=== PATIENT | male | born 1965 | race African-American/Black ===

== ENCOUNTER 2023-11-19 20:53 | Inpatient (IN) | payer MEDICARE, MEDICAID ==
[~2023-11-19] VITALS: Ht 182.9 cm; Wt 83.1 kg
[~2023-11-19 20:53] MED LIST: NIFE90TA60 PO
[2023-11-19] MEDS: ACETAMINOPHEN 325MG TABLET PO ONE (22:15)
[2023-11-19 23:09] LABS: DIFFERENTIAL COMMENT 1; HEMATOCRIT. 30.3 % (42.0-52.0); HEMOGLOBIN. 9.9 g/dL (14.0-18.0); MEAN CORPUSCULAR HEMOGLOBIN 28.6 pg (28.0-32.0); MEAN CORPUSCULAR HGB CONC 32.8 g/dL (31.0-37.0); MEAN CORPUSCULAR VOLUME 86.9 fL (80.0-94.0); MEAN PLATELET VOLUME 11.1 fl (7.4-10.4); PLATELET 129 x1000/uL (130-400); RED BLOOD CELL COUNT 3.48 mill/uL (4.7-6.1); RED CELL DISTRIBUTION WIDTH 15.6 % (11.6-14.6); WHITE BLOOD COUNT 6.1 x1000/uL (4.5-11.0)
[2023-11-19 23:13] LABS: CHLORIDE 96 mEq/L (98-107); SODIUM 126 mEq/L (136-145)
[2023-11-19 23:14] LABS: CALCIUM 9.7 mg/dL (8.7-10.4); CARBON DIOXIDE 15 mEq/L (21-32)
[2023-11-19 23:19] LABS: GLUCOSE 138 mg/dL (70-105); INR 1.1; PROTHROMBIN TIME 11.8 sec (9.6-11.0)
[2023-11-19 23:20] LABS: PLATELET ESTIMATE DECREASED
[2023-11-19 23:21] LABS: ALANINE AMINOTRANSFERASE < 7 IU/L (10-49); ALBUMIN 4.3 g/dL (3.2-4.8); ASPARTATE AMINOTRANSFERASE 10 IU/L (<34); BILIRUBIN DIRECT 0.2 mg/dL (<=3.0)
[2023-11-19 23:22] LABS: BILIRUBIN TOTAL 0.4 mg/dL (0.1-1.0)
[2023-11-19 23:55] LABS: POTASSIUM 6.2 mEq/L (3.5-5.1); UREA NITROGEN BLOOD 154 mg/dL (9-23)
[2023-11-19 23:56] LABS: CREATININE 17.3 mg/dL (0.6-1.3); ETHANOL BLOOD < 10 mg/dL (<10)
[2023-11-20] MEDS: MORPHINE SULFATE 4 MG/ML INJ (FOR IV/IM USE) IM ONE (00:05)
[2023-11-20] MEDS: SODIUM POLYSTYRENE SULFONATE 15 G/60 ML BOT PO NR (02:15)
[2023-11-20] MEDS: SODIUM CHLORIDE 0.9% 500 ML IV ONE (02:15)
[2023-11-20] MEDS: CALCIUM GLUCONATE 100MG/ML 10ML VIAL IV NR (03:13)
[2023-11-20] MEDS: CEFTRIAXONE 2GM/50ML 50 ML IV ONE (03:13)
[2023-11-20 04:30] VITALS: BP 126/62; PULSE 62; RESP 18; TEMP 36.3068
[2023-11-20] MEDS ORDERED: IPRATROPIUM/ALBUTEROL 0.5-3(2.5)MG/3ML NEB HHN PRN (05:30)
[2023-11-20] MEDS ORDERED: ACETAMINOPHEN 325MG TABLET PO PRN ×2 (05:30)
[2023-11-20] MEDS ORDERED: ONDANSETRON HCL 4MG/2ML INJ IV PRN (05:30)
[2023-11-20] MEDS ORDERED: DOCUSATE SODIUM 100MG CAPSULE PO PRN (05:30)
[2023-11-20] MEDS ORDERED: LORAZEPAM 0.5MG TABLET PO PRN (05:30)
[2023-11-20] MEDS ORDERED: GUAIFENESIN 200MG/10ML SUGAR FREE UDC PO PRN (05:30)
[2023-11-20] MEDS ORDERED: VANCOMYCIN 1GM/200ML PMX (BAXTER) IV NR (06:00)
[2023-11-20 08:28] VITALS: BP 148/67; PULSE 58; RESP 18; TEMP 37.00296; O2SAT 99
[2023-11-20] MEDS: VANCOMYCIN 1.5GM/250ML IV NR (08:46)
[2023-11-20] MEDS: CEFEPIME 2GM/100ML 100 ML IV NR (08:47)
[2023-11-20] MEDS ORDERED: PIPERACILLIN/TAZO 3.375G/50ML 50 ML IV SCH (09:00)
[2023-11-20] MEDS: ENOXAPARIN 30MG/0.3ML SYR SUBCUT SCH (09:00)
[2023-11-20] MEDS ORDERED: DEXTROSE 50% WATER 50ML SYRINGE IV PRN (09:45)
[2023-11-20] MEDS: BLOOD SUGAR DIAGNOSTIC STRIP TEST SCH (10:21)
[2023-11-20] MEDS: INSULIN LISPRO 100 UNITS/ML SUBCUT SCH (10:21)
[2023-11-20] MEDS: MANNITOL 12.5G (25%) VIAL 50ML IV NR (12:32)
[2023-11-20 16:30] VITALS: BP 151/66; PULSE 58; RESP 18; TEMP 37.2252; O2SAT 96
[2023-11-20 20:00] VITALS: BP 153/60; PULSE 60; RESP 20; TEMP 36.44736; O2SAT 97
[2023-11-20] MEDS: RISPERIDONE 0.5MG TABLET PO SCH (20:59)
[2023-11-21] VITALS (7 sets, daily range): BP systolic 161–219; BP diastolic 64–93; PULSE 49–71; RESP 18–20; TEMP 36.28068–36.72516; O2SAT 93–100
[2023-11-21] MEDS: CEFEPIME 2GM/100ML 100 ML IV SCH (09:00)
[2023-11-21] MEDS: HYDRALAZINE 20MG/ML VIAL IV PRN (16:51)
[2023-11-21] MEDS: CLONIDINE 0.1MG TABLET PO PRN (17:01)
[2023-11-21] MEDS: CLONIDINE HCL 0.2MG/24HR PATCH TD SCH (21:10)
[2023-11-22] VITALS: BP 177/68; PULSE 50; RESP 18; TEMP 36.28068; O2SAT 100
[2023-11-22 04:00] VITALS: BP 163/64; PULSE 56; RESP 18; TEMP 36.3918; O2SAT 100
[2023-11-22 08:00] VITALS: BP 172/68; PULSE 61; RESP 18; TEMP 36.05844; O2SAT 99
[2023-11-22] MEDS: CEFEPIME 1GM/50ML 50 ML IV SCH (10:56)
[2023-11-22 12:00] VITALS: BP 179/73; PULSE 61; RESP 19; TEMP 36.22512; O2SAT 99
[2023-11-22 16:00] VITALS: BP 193/79; PULSE 64; RESP 19; TEMP 36.22512; O2SAT 96
[2023-11-22] MEDS ORDERED: RISP05 PO (17:12)
[2023-11-22 20:00] VITALS: BP 178/69; PULSE 59; RESP 19; TEMP 36.28068; O2SAT 98
[2023-11-23] VITALS (10 sets, daily range): BP systolic 118–178; BP diastolic 57–87; PULSE 55–78; RESP 18–20; TEMP 36.44736–37.16964; O2SAT 97–100
[2023-11-23] MEDS: NIFEDIPINE XL 90MG TAB PO SCH (17:48)
[2023-11-23 19:07] LABS: BASOPHILS % 0.7 % (0.0-2.0); EOSINOPHILS % 6.5 % (0.0-5.0); HEMATOCRIT. 27.8 % (42.0-52.0); LYMPHOCYTES % 15.1 % (20.0-50.0); MEAN CORPUSCULAR HEMOGLOBIN 28.3 pg (28.0-32.0); MEAN CORPUSCULAR HGB CONC 32.6 g/dL (31.0-37.0); MEAN CORPUSCULAR VOLUME 86.7 fL (80.0-94.0); MEAN PLATELET VOLUME 10.6 fl (7.4-10.4); MONOCYTES % 14.5 % (2.0-8.0); NEUTROPHILS % 63.2 % (40.0-76.0); PLATELET 147 x1000/uL (130-400); RED CELL DISTRIBUTION WIDTH 15.6 % (11.6-14.6); WHITE BLOOD COUNT 4.2 x1000/uL (4.5-11.0)
[2023-11-23 19:18] LABS: POTASSIUM 4.8 mEq/L (3.5-5.1)
[2023-11-23 19:19] LABS: CALCIUM 9.1 mg/dL (8.7-10.4)
[2023-11-23 19:25] LABS: CREATININE 16.1 mg/dL (0.6-1.3)
[2023-11-24] VITALS: BP 125/56; PULSE 57; RESP 19; TEMP 36.33624; O2SAT 98
== END 2023-11-24 04:07 | disposition home health service (06) | DRG 727 ==
LOC: ER 21:00 → 7WST 11-20 02:08
PROVIDERS: ADMIT Internal Medicine; ATTEND Internal Medicine
PROC: 5A1D70Z Performance of Urinary Filtration, Intermittent, Less than 6 Hours Per Day (ICD-10-PCS; principal; 2023-11-23)
DX: N49.2 Inflammatory disorders of scrotum (principal); J18.9 Pneumonia, unspecified organism; J96.01 Acute respiratory failure with hypoxia; N18.6 End stage renal disease; E87.1 Hypo-osmolality and hyponatremia; K51.20 Ulcerative (chronic) proctitis without complications; I12.0 Hypertensive chronic kidney disease with stage 5 chronic kidney disease or end stage renal disease; K74.60 Unspecified cirrhosis of liver; E87.5 Hyperkalemia; H54.8 Legal blindness, as defined in USA; E11.22 Type 2 diabetes mellitus with diabetic chronic kidney disease; N43.3 Hydrocele, unspecified; D69.6 Thrombocytopenia, unspecified; E87.70 Fluid overload, unspecified; R16.2 Hepatomegaly with splenomegaly, not elsewhere classified; R74.8 Abnormal levels of other serum enzymes; D63.1 Anemia in chronic kidney disease; F39 Unspecified mood [affective] disorder; K52.9 Noninfective gastroenteritis and colitis, unspecified; K57.30 Diverticulosis of large intestine without perforation or abscess without bleeding; K62.89 Other specified diseases of anus and rectum; I25.10 Atherosclerotic heart disease of native coronary artery without angina pectoris; N43.41 Spermatocele of epididymis, single; Z99.2 Dependence on renal dialysis; Z91.158 Patient's noncompliance with renal dialysis for other reason; Z91.199 Patient's noncompliance with other medical treatment and regimen due to unspecified reason
CPT/HCPCS: 36415; 71045; 74176; 76700; 76870; 80048; 80076; 80202; 80320; 82962; 83605; 85025; 90935; 93976; 99291; J0360; J0610; J0692; J0696; J1650; J1815; J2150; J2270; J3370; J7040; G0480

== ENCOUNTER 2024-03-19 21:47 | Inpatient (IN) | payer MEDICARE, MEDICAID ==
[~2024-03-19] VITALS: Ht 165.1 cm; Wt 74.8 kg
[~2024-03-19 21:47] MED LIST changes: +RISP05 PO
[2024-03-19] MEDS: PROPOFOL 200MG/20ML VIAL IV ONE (22:00)
[2024-03-19 22:32] VITALS: PULSE 96; RESP 15; O2SAT 98
[2024-03-19 22:39] LABS: HEMATOCRIT. 24.9 % (42.0-52.0); HEMOGLOBIN. 7.5 g/dL (14.0-18.0); MEAN CORPUSCULAR HEMOGLOBIN 26.8 pg (28.0-32.0); MEAN CORPUSCULAR VOLUME 89.2 fL (80.0-94.0); MEAN PLATELET VOLUME 10.6 fl (7.4-10.4); PLATELET 315 x1000/uL (130-400); RED CELL DISTRIBUTION WIDTH 18.2 % (11.6-14.6); WHITE BLOOD COUNT 25.2 x1000/uL (4.5-11.0)
[2024-03-19 22:40] LABS: DIFFERENTIAL COMMENT 1
[2024-03-19] MEDS: ROCURONIUM BROMIDE 10MG/ML VIAL 5ML IV ONE (22:41)
[2024-03-19] MEDS: ETOMIDATE 2MG/ML 10ML VIAL IV ONE (22:41)
[2024-03-19 22:44] LABS: CHLORIDE 101 mEq/L (98-107); SODIUM 142 mEq/L (136-145)
[2024-03-19 22:45] LABS: CALCIUM 9.7 mg/dL (8.7-10.4); CARBON DIOXIDE 21 mEq/L (21-32)
[2024-03-19 22:50] LABS: GLUCOSE 194 mg/dL (70-105); UREA NITROGEN BLOOD 64 mg/dL (9-23)
[2024-03-19 22:52] LABS: CREATINE KINASE 227 IU/L (46-171)
[2024-03-19 22:56] LABS: INR 1.2; POTASSIUM 6.4 mEq/L (3.5-5.1); PROTHROMBIN TIME 13.2 sec (9.6-11.0)
[2024-03-19 22:57] LABS: CREATININE 7.9 mg/dL (0.6-1.3); ETHANOL BLOOD < 10 mg/dL (<10); TROPONIN I HIGH SENSITIVITY 1828 ng/L (3.0-53)
[2024-03-19 22:59] LABS: ANISOCYTOSIS 1+; NUCLEATED RED BLOOD CELLS 1 /100 WBC; PLATELET ESTIMATE NORMAL
[2024-03-19] MEDS: PROPOFOL 10MG/ML 100ML 100 ML IV ONE (23:24)
[2024-03-19] MEDS ORDERED: HEPARIN BOLUS PRN aPTT 30-44 IV (23:45)
[2024-03-19] MEDS ORDERED: VANCOMYCIN 1.5GM/250ML 250 ML IV NR (23:45)
[2024-03-19] MEDS ORDERED: HEPARIN BOLUS PRN aPTT <30 IV (23:45)
[2024-03-20] VITALS (80 sets, daily range): BP systolic 71–166; BP diastolic 50–97; PULSE 62–96; RESP 16–30; TEMP 33.39156–37.72524; O2SAT 97–100
[2024-03-20 00:09] LABS: BG BASE EXCESS -8.3 mmol/L (-2.0-3.0); BG CARBOXYHEMOGLOBIN 0.8 % (0.5-1.5); BG FRACTION INSPIRED OXYGEN 100; BG HCO3 ACT 18.9 mmol/L (21.0-28.0); BG OXYHEMOGLOBIN 97.2 % (94.0-98.0); BG PCO2 47.4 mmHg (35.0-48.0); BG PH 7.219 (7.350-7.450); BG SAMPLE SITE RIGHT BRACHIAL; BG TOTAL HEMOGLOBIN 8.1 g/dL (13.5-17.5); BG TOTAL RESPIRATORY RATE 17 b/min; BG VENT MODE VENT - AC
[2024-03-20] MEDS ORDERED: MAGNESIUM/ALUMINUM HYDROXIDE/SIMETHICONE 30ML UDC PO PRN (01:30)
[2024-03-20] MEDS ORDERED: CLONIDINE 0.1MG TABLET PO PRN (01:30)
[2024-03-20] MEDS ORDERED: GUAIFENESIN 200MG/10ML SUGAR FREE UDC PO PRN (01:30)
[2024-03-20] MEDS ORDERED: DOCUSATE SODIUM 100MG CAPSULE PO PRN (01:30)
[2024-03-20] MEDS ORDERED: DEXTROSE 50% WATER 50ML SYRINGE IV PRN (01:30)
[2024-03-20] MEDS ORDERED: ONDANSETRON HCL 4MG/2ML INJ IV PRN (01:30)
[2024-03-20] MEDS: SODIUM CHLORIDE 0.9% 250 ML IV ONE (01:33)
[2024-03-20] MEDS: INSULIN REGULAR (HUMULIN R) 1000UNITS/10ML VIAL IV NR (01:57)
[2024-03-20] MEDS: FUROSEMIDE 40MG/4ML VIAL IV NR (01:58)
[2024-03-20] MEDS: CALCIUM GLUCONATE 1GM PREMIX 50 ML IV NR (01:59)
[2024-03-20] MEDS: DEXTROSE 50% WATER 50ML SYRINGE IV NR (02:00)
[2024-03-20] MEDS: SODIUM BICARBONATE 8.4% 50MEQ/50ML SYR IV NR (02:02)
[2024-03-20] MEDS: SODIUM CHLORIDE 0.9% 500 ML IV ONE (02:15)
[2024-03-20] MEDS ORDERED: HEPARIN BOLUS PRN aPTT <30 IV (02:16)
[2024-03-20] MEDS: HEPARIN 60 UNITS/KG BOLUS IV NR (02:38)
[2024-03-20] MEDS: HEPARIN 25,000 UNITS PREMIX 250 ML IV SCH (02:49)
[2024-03-20] MEDS: PIPERACILLIN/TAZO 3.375G/50ML 50 ML IV NR (02:54)
[2024-03-20] MEDS: SODIUM POLYSTYRENE SULFONATE 15 G/60 ML BOT PO NR (03:01)
[2024-03-20] MEDS: HEPARIN 60 UNITS/KG BOLUS IV SCH (03:09)
[2024-03-20] MEDS: NOREPINEPHRINE 8MG/250ML PMX 250 ML IV PRN (03:30)
[2024-03-20] MEDS: PANTOPRAZOLE SODIUM 40 MG/VIAL IV NR (05:00)
[2024-03-20] MEDS: CLOPIDOGREL 75MG TABLET PO NR (05:00)
[2024-03-20] MEDS: DEXT 5%/0.9% NACL 1,000 ML IV SCH (05:04)
[2024-03-20] MEDS: ASPIRIN 325MG EC TABLET PO NR (07:17)
[2024-03-20] MEDS: IPRATROPIUM/ALBUTEROL 0.5-3(2.5)MG/3ML NEB HHN PRN (09:32)
[2024-03-20] MEDS: PANTOPRAZOLE SODIUM 40 MG/VIAL IV SCH (09:36)
[2024-03-20] MEDS: PROPOFOL 10MG/ML 100ML 100 ML IV PRN (09:36)
[2024-03-20 09:42] LABS: HEMOGLOBIN. 7.9 g/dL (14.0-18.0); MEAN CORPUSCULAR HGB CONC 30.3 g/dL (31.0-37.0); MEAN CORPUSCULAR VOLUME 89.1 fL (80.0-94.0); MEAN PLATELET VOLUME 10.3 fl (7.4-10.4); PLATELET 325 x1000/uL (130-400); RED BLOOD CELL COUNT 2.92 mill/uL (4.7-6.1); RED CELL DISTRIBUTION WIDTH 18.5 % (11.6-14.6); WHITE BLOOD COUNT 19.2 x1000/uL (4.5-11.0)
[2024-03-20 09:45] LABS: POTASSIUM 5.4 mEq/L (3.5-5.1)
[2024-03-20 09:46] LABS: CALCIUM 9.2 mg/dL (8.7-10.4)
[2024-03-20 09:51] LABS: IRON 63 ug/dL (65-175)
[2024-03-20 09:52] LABS: DIFFERENTIAL COMMENT 1
[2024-03-20 09:54] LABS: CREATINE KINASE 251 IU/L (46-171); PHOSPHORUS 7.4 mg/dL (2.5-4.9); TOTAL IRON BINDING CAPACITY 374 ug/dl (250-425)
[2024-03-20 10:40] LABS: TROPONIN I HIGH SENSITIVITY 5457 ng/L (3.0-53)
[2024-03-20 10:41] LABS: CREATININE 8.2 mg/dL (0.6-1.3)
[2024-03-20 11:24] LABS: FERRITIN > 16500 ng/mL (22-322)
[2024-03-20] MEDS: VANCOMYCIN 1.5GM/250ML 250 ML IV NR (11:24)
[2024-03-20 11:43] LABS: FOLIC ACID (FOLATE) SERUM 8.68 ng/mL (>5.38)
[2024-03-20 11:44] LABS: VITAMIN B12 SERUM 3229.98 pg/mL (211-911)
[2024-03-20] MEDS: BLOOD SUGAR DIAGNOSTIC STRIP TEST SCH (12:10)
[2024-03-20 12:13] LABS: HEPATITIS B SURFACE ANTIGEN NEGATIVE (Negative)
[2024-03-20] MEDS: SUCRALFATE 1G TABLET PO SCH (12:17)
[2024-03-20] MEDS: INSULIN LISPRO 100 UNITS/ML SUBCUT SCH (12:19)
[2024-03-20 12:30] LABS: HEPATITIS C AB NON REACTIVE (Neg) (Negative)
[2024-03-20 12:33] LABS: HEPATITIS A AB IGM NEGATIVE (Negative)
[2024-03-20 12:34] LABS: HEPATITIS B CORE AB IGM NEGATIVE (Negative)
[2024-03-20 13:25] LABS: ANISOCYTOSIS 2+; HYPOCHROMASIA 1+; NUCLEATED RED BLOOD CELLS 2 /100 WBC; PLATELET ESTIMATE NORMAL
[2024-03-20] MEDS: ACETAMINOPHEN 325MG TABLET PO PRN (13:42)
[2024-03-20] MEDS: IPRATROPIUM/ALBUTEROL 0.5-3(2.5)MG/3ML NEB HHN SCH (14:14)
[2024-03-20] MEDS: HEPARIN BOLUS PRN aPTT 30-44 IV (14:27)
[2024-03-20 15:11] LABS: BG DEOXYHEMOGLOBIN 3.4 % (0.0-5.0); BG FRACTION INSPIRED OXYGEN 80; BG HCO3 ACT 24.4 mmol/L (21.0-28.0); BG METHEMOGLOBIN 0.3 % (0.5-1.5); BG OXYGEN SATURATION 96.6 % (94.0-98.0); BG OXYHEMOGLOBIN 96.3 % (94.0-98.0); BG PH 7.415 (7.350-7.450); BG PO2 94.5 mmHg (83.0-108.0); BG SAMPLE SITE LEFT BRACHIAL; BG TOTAL HEMOGLOBIN 8.6 g/dL (13.5-17.5); BG TOTAL RESPIRATORY RATE 22 b/min; BG VENT MODE VENT - AC
[2024-03-20] MEDS ORDERED: AMIODARONE 360MG/200ML 200 ML IV SCH (18:30)
[2024-03-20] MEDS: AMIODARONE 150MG/100ML D5W 100 ML IV SCH (18:45)
[2024-03-20] MEDS: PIPERACILLIN/TAZO 3.375G/50ML 50 ML IV SCH (20:09)
[2024-03-20] MEDS: AMIODARONE HCL 900 MG in DEXT 5% WATER 500 ML IV SCH (20:09)
[2024-03-20 22:03] LABS: CREATINE KINASE 179 IU/L (46-171)
[2024-03-20 22:04] LABS: TROPONIN I HIGH SENSITIVITY 4189 ng/L (3.0-53)
[2024-03-20 23:38] LABS: TROPONIN I HIGH SENSITIVITY 3961 ng/L (3.0-53)
[2024-03-21] VITALS (104 sets, daily range): BP systolic 71–187; BP diastolic 53–108; PULSE 49–102; RESP 15–25; TEMP 34.725–36.16956; O2SAT 95–100
[2024-03-21 07:24] LABS: HEMATOCRIT 25.9 % (42.0-52.0); HEMOGLOBIN 7.6 g/dL (14.0-18.0); MEAN CORPUSCULAR HGB CONC 29.5 g/dL (31.0-37.0); MEAN CORPUSCULAR VOLUME 91.3 fL (80.0-94.0); PLATELET 309 x1000/uL (130-400); RED BLOOD CELL COUNT 2.83 mill/uL (4.7-6.1); RED CELL DISTRIBUTION WIDTH 18.8 % (11.6-14.6); WHITE BLOOD COUNT 25.2 x1000/uL (4.5-11.0)
[2024-03-21 08:42] LABS: POTASSIUM 4.4 mEq/L (3.5-5.1)
[2024-03-21 08:44] LABS: CALCIUM 9.4 mg/dL (8.7-10.4)
[2024-03-21 08:48] LABS: BG BASE EXCESS -4.3 mmol/L (-2.0-3.0); BG CARBOXYHEMOGLOBIN 0.6 % (0.5-1.5); BG DEOXYHEMOGLOBIN 7.8 % (0.0-5.0); BG FRACTION INSPIRED OXYGEN 70; BG HCO3 ACT 21.2 mmol/L (21.0-28.0); BG METHEMOGLOBIN 0.3 % (0.5-1.5); BG OXYGEN SATURATION 92.1 % (94.0-98.0); BG OXYHEMOGLOBIN 91.3 % (94.0-98.0); BG PCO2 40.8 mmHg (35.0-48.0); BG PH 7.333 (7.350-7.450); BG PO2 72.5 mmHg (83.0-108.0); BG SAMPLE SITE RIGHT BRACHIAL; BG TOTAL HEMOGLOBIN 6.9 g/dL (13.5-17.5); BG VENT MODE VENT - AC
[2024-03-21 08:53] LABS: T4 FREE 0.87 ng/dL (0.89-1.76); THYROID STIMULATING HORMONE 1.25 uIU/mL (0.55-4.78)
[2024-03-21 08:56] LABS: CREATININE 6.8 mg/dL (0.6-1.3)
[2024-03-21] MEDS ORDERED: LABETALOL 5MG/ML 4ML INJ IV NR (12:00)
[2024-03-21] MEDS ORDERED: HYDRALAZINE 20MG/ML VIAL IV PRN (12:30)
[2024-03-21] MEDS: ASPIRIN 81MG TABLET NG SCH (18:00)
[2024-03-21] MEDS: ENOXAPARIN 80MG/0.8ML SYR SUBCUT SCH (18:01)
[2024-03-21] MEDS: AMIODARONE 200MG TABLET NG SCH (21:00)
[2024-03-21] MEDS: ATORVASTATIN CALCIUM 40MG TABLET NG SCH (21:48)
[2024-03-21 23:56] LABS: TROPONIN I HIGH SENSITIVITY 2971 ng/L (3.0-53)
[2024-03-22] VITALS (118 sets, daily range): BP systolic 74–192; BP diastolic 42–89; PULSE 58–82; RESP 12–23; TEMP 36.05844–37.05852; O2SAT 97–100
[2024-03-22] MEDS ORDERED: IOHEXOL-350 100 ML BOTTLE ONE (00:59)
[2024-03-22] MEDS ORDERED: ASPI-1160 PO (04:27)
[2024-03-22] MEDS ORDERED: MIRT-89 PO (04:27)
[2024-03-22] MEDS ORDERED: ATOR40TA70 PO (04:27)
[2024-03-22] MEDS ORDERED: BRIM.2 EACHEYE (04:27)
[2024-03-22] MEDS ORDERED: SODI10PO PO (04:27)
[2024-03-22] MEDS ORDERED: ATOR-2 PO (04:27)
[2024-03-22] MEDS ORDERED: NETA2.5D EACHEYE (04:27)
[2024-03-22] MEDS ORDERED: DORZ10DR9 EACHEYE (04:27)
[2024-03-22] MEDS ORDERED: FURO80TA3 PO (04:27)
[2024-03-22] MEDS ORDERED: FOLI-43 PO (04:27)
[2024-03-22] MEDS ORDERED: SEVE800T8 (04:27)
[2024-03-22] MEDS ORDERED: FERR325T30 PO (04:27)
[2024-03-22 08:04] LABS: BG BASE EXCESS -3.9 mmol/L (-2.0-3.0); BG CARBOXYHEMOGLOBIN 0.6 % (0.5-1.5); BG DEOXYHEMOGLOBIN 5.2 % (0.0-5.0); BG FRACTION INSPIRED OXYGEN 70; BG HCO3 ACT 20.8 mmol/L (21.0-28.0); BG METHEMOGLOBIN 0.3 % (0.5-1.5); BG OXYGEN SATURATION 94.8 % (94.0-98.0); BG OXYHEMOGLOBIN 93.9 % (94.0-98.0); BG PCO2 35.9 mmHg (35.0-48.0); BG PH 7.381 (7.350-7.450); BG PO2 80.7 mmHg (83.0-108.0); BG SAMPLE SITE RIGHT RADIAL; BG TOTAL HEMOGLOBIN 8.1 g/dL (13.5-17.5); BG VENT MODE VENT - AC
[2024-03-22] MEDS ORDERED: LIDOCAINE HCL/EPINEPHRINE 1%-EPI 1:100,000 20ML VIAL INFIL NR (09:45)
[2024-03-22 10:55] LABS: HEMATOCRIT. 24.5 % (42.0-52.0); HEMOGLOBIN. 7.5 g/dL (14.0-18.0); MEAN CORPUSCULAR HEMOGLOBIN 27.4 pg (28.0-32.0); MEAN CORPUSCULAR HGB CONC 30.6 g/dL (31.0-37.0); MEAN CORPUSCULAR VOLUME 89.5 fL (80.0-94.0); MEAN PLATELET VOLUME 10.8 fl (7.4-10.4); PLATELET 273 x1000/uL (130-400); RED BLOOD CELL COUNT 2.73 mill/uL (4.7-6.1); RED CELL DISTRIBUTION WIDTH 18.9 % (11.6-14.6)
[2024-03-22 11:14] LABS: DIFFERENTIAL COMMENT 1
[2024-03-22 11:18] LABS: CARBON DIOXIDE 24 mEq/L (21-32); CHLORIDE 99 mEq/L (98-107); POTASSIUM 3.8 mEq/L (3.5-5.1); SODIUM 138 mEq/L (136-145)
[2024-03-22 11:24] LABS: GLUCOSE 150 mg/dL (70-105); UREA NITROGEN BLOOD 56 mg/dL (9-23)
[2024-03-22 11:26] LABS: PHOSPHORUS 6.3 mg/dL (2.5-4.9)
[2024-03-22 11:32] LABS: CREATININE 6.9 mg/dL (0.6-1.3)
[2024-03-22 12:27] LABS: NUCLEATED RED BLOOD CELLS 5 /100 WBC
[2024-03-22 12:28] LABS: ANISOCYTOSIS 3+; HYPOCHROMASIA 1+; PLATELET ESTIMATE NORMAL
[2024-03-22] MEDS: DEXMEDETOMIDINE 400 MCG/100 ML 100 ML IV PRN (13:46)
[2024-03-23] VITALS (103 sets, daily range): BP systolic 77–138; BP diastolic 50–76; PULSE 44–72; RESP 15–28; TEMP 36.44736–37.16964; O2SAT 98–100
[2024-03-23] MEDS: DOXYCYCLINE 100MG/100ML 100 ML IV SCH (04:16)
[2024-03-23 09:06] LABS: BG BASE EXCESS 1.9 mmol/L (-2.0-3.0); BG CARBOXYHEMOGLOBIN 0.7 % (0.5-1.5); BG DEOXYHEMOGLOBIN 4.6 % (0.0-5.0); BG FRACTION INSPIRED OXYGEN 70; BG HCO3 ACT 26.4 mmol/L (21.0-28.0); BG METHEMOGLOBIN 0.3 % (0.5-1.5); BG OXYGEN SATURATION 95.4 % (94.0-98.0); BG OXYHEMOGLOBIN 94.4 % (94.0-98.0); BG PCO2 40.7 mmHg (35.0-48.0); BG PO2 79.4 mmHg (83.0-108.0); BG SAMPLE SITE RIGHT BRACHIAL; BG TOTAL HEMOGLOBIN 7.8 g/dL (13.5-17.5); BG VENT MODE VENT - AC
[2024-03-23 11:56] LABS: MEAN CORPUSCULAR HEMOGLOBIN 26.8 pg (28.0-32.0); MEAN CORPUSCULAR VOLUME 89.4 fL (80.0-94.0); MEAN PLATELET VOLUME 10.4 fl (7.4-10.4); PLATELET 259 x1000/uL (130-400); RED BLOOD CELL COUNT 2.62 mill/uL (4.7-6.1); RED CELL DISTRIBUTION WIDTH 18.4 % (11.6-14.6); WHITE BLOOD COUNT 20.1 x1000/uL (4.5-11.0)
[2024-03-23 12:00] LABS: CHLORIDE 100 mEq/L (98-107); DIFFERENTIAL COMMENT 1; POTASSIUM 3.8 mEq/L (3.5-5.1); SODIUM 137 mEq/L (136-145)
[2024-03-23 12:01] LABS: CARBON DIOXIDE 26 mEq/L (21-32)
[2024-03-23 12:02] LABS: CALCIUM 9.1 mg/dL (8.7-10.4); HEMATOCRIT. 23.4 % (42.0-52.0)
[2024-03-23 12:06] LABS: GLUCOSE 158 mg/dL (70-105)
[2024-03-23 12:07] LABS: UREA NITROGEN BLOOD 40 mg/dL (9-23)
[2024-03-23 12:08] LABS: ALANINE AMINOTRANSFERASE 337 IU/L (10-49); ALBUMIN 2.7 g/dL (3.2-4.8); ASPARTATE AMINOTRANSFERASE 252 IU/L (<34)
[2024-03-23 12:09] LABS: BILIRUBIN TOTAL 0.8 mg/dL (0.1-1.0); CREATININE 5.2 mg/dL (0.6-1.3); PROTEIN TOTAL 5.9 g/dL (6.0-8.3)
[2024-03-23 16:50] LABS: ANISOCYTOSIS 1+; NUCLEATED RED BLOOD CELLS 3 /100 WBC; PLATELET ESTIMATE NORMAL
[2024-03-23 22:36] LABS: HEMOGLOBIN 8.2 g/dL (14.0-18.0)
[2024-03-24] VITALS (111 sets, daily range): BP systolic 70–176; BP diastolic 22–73; PULSE 48–71; RESP 0–32; TEMP 36.6696–37.11408; O2SAT 94–100
[2024-03-24 01:18] LABS: HEMATOCRIT 23.7 % (42.0-52.0)
[2024-03-24 06:31] LABS: HEMATOCRIT 24.9 % (42.0-52.0); HEMOGLOBIN 7.3 g/dL (14.0-18.0)
[2024-03-24 07:05] LABS: CALCIUM 9.4 mg/dL (8.7-10.4)
[2024-03-24 07:24] LABS: CREATININE 5.5 mg/dL (0.6-1.3)
[2024-03-24] MEDS ORDERED: LIDOCAINE HCL 1% 10 MG/ML 10ML VIAL ONE (07:39)
[2024-03-24] MEDS: AMIODARONE 200MG TABLET PO SCH (09:06)
[2024-03-24 09:12] LABS: BG BASE EXCESS 1.1 mmol/L (-2.0-3.0); BG CARBOXYHEMOGLOBIN 0.8 % (0.5-1.5); BG DEOXYHEMOGLOBIN 10.4 % (0.0-5.0); BG FRACTION INSPIRED OXYGEN 40; BG HCO3 ACT 25.9 mmol/L (21.0-28.0); BG METHEMOGLOBIN 0.3 % (0.5-1.5); BG OXYGEN SATURATION 89.5 % (94.0-98.0); BG OXYHEMOGLOBIN 88.5 % (94.0-98.0); BG PCO2 41.8 mmHg (35.0-48.0); BG PO2 61.8 mmHg (83.0-108.0); BG SAMPLE SITE RIGHT RADIAL; BG TOTAL HEMOGLOBIN 7.8 g/dL (13.5-17.5); BG VENT MODE VENT - AC
[2024-03-24] MEDS: LACTOBACILLUS GG CAPSULE GT SCH (13:39)
[2024-03-24 19:29] LABS: BASOPHILS % 0.2 % (0.0-2.0); EOSINOPHILS % 0.5 % (0.0-5.0); HEMOGLOBIN. 7.4 g/dL (14.0-18.0); LYMPHOCYTES % 5.5 % (20.0-50.0); MEAN CORPUSCULAR HEMOGLOBIN 26.7 pg (28.0-32.0); MEAN CORPUSCULAR HGB CONC 29.8 g/dL (31.0-37.0); MEAN CORPUSCULAR VOLUME 89.5 fL (80.0-94.0); MEAN PLATELET VOLUME 9.9 fl (7.4-10.4); NEUTROPHILS % 89.8 % (40.0-76.0); PLATELET 260 x1000/uL (130-400); RED BLOOD CELL COUNT 2.79 mill/uL (4.7-6.1); RED CELL DISTRIBUTION WIDTH 19.9 % (11.6-14.6); WHITE BLOOD COUNT 19.4 x1000/uL (4.5-11.0)
[2024-03-24 19:32] LABS: POTASSIUM 3.6 mEq/L (3.5-5.1)
[2024-03-24 19:34] LABS: CALCIUM 9.3 mg/dL (8.7-10.4)
[2024-03-24 19:38] LABS: CREATININE 4.6 mg/dL (0.6-1.3)
[2024-03-24 19:40] LABS: DIFFERENTIAL COMMENT 1
[2024-03-24] MEDS: EPOETIN ALFA-EPBX 4,000 UNIT/ML VIAL SUBCUT SCH (21:00)
[2024-03-25] VITALS (106 sets, daily range): BP systolic 73–154; BP diastolic 22–81; PULSE 47–80; RESP 15–38; TEMP 36.55848–37.11408; O2SAT 96–100
[2024-03-25 06:56] LABS: CALCIUM 9.2 mg/dL (8.7-10.4); POTASSIUM 3.7 mEq/L (3.5-5.1)
[2024-03-25 07:03] LABS: CREATININE 4.9 mg/dL (0.6-1.3)
[2024-03-25 07:09] LABS: HEMATOCRIT. 24.1 % (42.0-52.0); HEMOGLOBIN. 7.4 g/dL (14.0-18.0); MEAN CORPUSCULAR HEMOGLOBIN 27.3 pg (28.0-32.0); MEAN CORPUSCULAR HGB CONC 30.6 g/dL (31.0-37.0); MEAN CORPUSCULAR VOLUME 89.4 fL (80.0-94.0); MEAN PLATELET VOLUME 10.2 fl (7.4-10.4); PLATELET 236 x1000/uL (130-400); RED BLOOD CELL COUNT 2.69 mill/uL (4.7-6.1); RED CELL DISTRIBUTION WIDTH 19.9 % (11.6-14.6)
[2024-03-25 07:32] LABS: DIFFERENTIAL COMMENT 1
[2024-03-25 09:29] LABS: BG BASE EXCESS -0.6 mmol/L (-2.0-3.0); BG CARBOXYHEMOGLOBIN 0.8 % (0.5-1.5); BG DEOXYHEMOGLOBIN 7.5 % (0.0-5.0); BG FRACTION INSPIRED OXYGEN 30; BG HCO3 ACT 23.6 mmol/L (21.0-28.0); BG METHEMOGLOBIN 0.3 % (0.5-1.5); BG OXYGEN SATURATION 92.4 % (94.0-98.0); BG OXYHEMOGLOBIN 91.4 % (94.0-98.0); BG PCO2 36.3 mmHg (35.0-48.0); BG PH 7.431 (7.350-7.450); BG PO2 66.5 mmHg (83.0-108.0); BG SAMPLE SITE RIGHT RADIAL; BG TOTAL HEMOGLOBIN 6.9 g/dL (13.5-17.5); BG VENT MODE VENT - AC
[2024-03-25 10:09] LABS: NUCLEATED RED BLOOD CELLS 3 /100 WBC
[2024-03-25 10:10] LABS: ANISOCYTOSIS 2+; PLATELET ESTIMATE NORMAL
[2024-03-26] VITALS (70 sets, daily range): BP systolic 96–148; BP diastolic 34–75; PULSE 56–77; RESP 4–30; TEMP 36.44736–37.503; O2SAT 95–100
[2024-03-26 06:46] LABS: POTASSIUM 3.6 mEq/L (3.5-5.1)
[2024-03-26 06:47] LABS: CALCIUM 9.1 mg/dL (8.7-10.4)
[2024-03-26 06:54] LABS: PHOSPHORUS 4.6 mg/dL (2.5-4.9)
[2024-03-26 06:57] LABS: CREATININE 5.7 mg/dL (0.6-1.3)
[2024-03-26 07:35] LABS: HEMATOCRIT. 23.2 % (42.0-52.0); HEMOGLOBIN. 7.1 g/dL (14.0-18.0); MEAN CORPUSCULAR HEMOGLOBIN 27.2 pg (28.0-32.0); MEAN CORPUSCULAR HGB CONC 30.4 g/dL (31.0-37.0); MEAN CORPUSCULAR VOLUME 89.4 fL (80.0-94.0); MEAN PLATELET VOLUME 10.3 fl (7.4-10.4); PLATELET 206 x1000/uL (130-400); WHITE BLOOD COUNT 14.6 x1000/uL (4.5-11.0)
[2024-03-26 09:02] LABS: DIFFERENTIAL COMMENT 1
[2024-03-26] MEDS ORDERED: NOREPINEPHRINE 8 MG in DEXT 5% WATER 242 ML IV SCH (10:00)
[2024-03-26] MEDS: NOREPINEPHRINE 8MG/250ML PMX 250 ML IV PRN (12:12)
[2024-03-26 12:51] LABS: BG CARBOXYHEMOGLOBIN 1.3 % (0.5-1.5); BG DEOXYHEMOGLOBIN 9.6 % (0.0-5.0); BG FRACTION INSPIRED OXYGEN 40; BG HCO3 ACT 26.4 mmol/L (21.0-28.0); BG METHEMOGLOBIN 0.3 % (0.5-1.5); BG OXYGEN SATURATION 90.2 % (94.0-98.0); BG OXYHEMOGLOBIN 88.8 % (94.0-98.0); BG PCO2 40.3 mmHg (35.0-48.0); BG PH 7.434 (7.350-7.450); BG PO2 60.9 mmHg (83.0-108.0); BG SAMPLE SITE RIGHT RADIAL; BG TOTAL HEMOGLOBIN 8.1 g/dL (13.5-17.5); BG VENT MODE VENT - SIMV
[2024-03-26 16:20] LABS: ANISOCYTOSIS 2+; PLATELET ESTIMATE NORMAL
[2024-03-27] VITALS (57 sets, daily range): BP systolic 103–142; BP diastolic 46–96; PULSE 51–76; RESP 8–32; TEMP 35.89176–37.00296; O2SAT 92–100
[2024-03-27 07:06] LABS: POTASSIUM 3.9 mEq/L (3.5-5.1)
[2024-03-27 07:08] LABS: CALCIUM 9.4 mg/dL (8.7-10.4)
[2024-03-27 07:13] LABS: CREATININE 4.5 mg/dL (0.6-1.3)
[2024-03-27 07:42] LABS: HEMATOCRIT. 25.4 % (42.0-52.0); HEMOGLOBIN. 7.6 g/dL (14.0-18.0); MEAN CORPUSCULAR HEMOGLOBIN 27.1 pg (28.0-32.0); MEAN CORPUSCULAR VOLUME 90.4 fL (80.0-94.0); PLATELET 220 x1000/uL (130-400); RED BLOOD CELL COUNT 2.81 mill/uL (4.7-6.1); RED CELL DISTRIBUTION WIDTH 20.7 % (11.6-14.6); WHITE BLOOD COUNT 14.2 x1000/uL (4.5-11.0)
[2024-03-27 09:10] LABS: DIFFERENTIAL COMMENT 1
[2024-03-27 11:05] LABS: BG BASE EXCESS -0.9 mmol/L (-2.0-3.0); BG CARBOXYHEMOGLOBIN 0.8 % (0.5-1.5); BG FRACTION INSPIRED OXYGEN 40; BG HCO3 ACT 23.6 mmol/L (21.0-28.0); BG METHEMOGLOBIN 0.3 % (0.5-1.5); BG OXYHEMOGLOBIN 95.9 % (94.0-98.0); BG PCO2 37.8 mmHg (35.0-48.0); BG PH 7.413 (7.350-7.450); BG PO2 91.3 mmHg (83.0-108.0); BG SAMPLE SITE RIGHT RADIAL; BG TOTAL HEMOGLOBIN 7.7 g/dL (13.5-17.5); BG VENT MODE VENT - CPAP
[2024-03-27 14:19] LABS: ANISOCYTOSIS 2+; PLATELET ESTIMATE NORMAL
[2024-03-27 14:20] LABS: TARGET CELLS FEW
[2024-03-28] VITALS (36 sets, daily range): BP systolic 57–132; BP diastolic 36–77; PULSE 55–92; RESP 14–29; TEMP 36.3918–37.11408; O2SAT 94–100
[2024-03-28 01:32] LABS: BG BASE EXCESS 0.1 mmol/L (-2.0-3.0); BG DEOXYHEMOGLOBIN 4.7 % (0.0-5.0); BG FRACTION INSPIRED OXYGEN 100; BG HCO3 ACT 26.4 mmol/L (21.0-28.0); BG METHEMOGLOBIN 0.3 % (0.5-1.5); BG OXYGEN SATURATION 95.2 % (94.0-98.0); BG PCO2 51.4 mmHg (35.0-48.0); BG PH 7.328 (7.350-7.450); BG PO2 83.9 mmHg (83.0-108.0); BG SAMPLE SITE RIGHT BRACHIAL; BG TOTAL HEMOGLOBIN 8.9 g/dL (13.5-17.5); BG VENT MODE MASK - NRB
[2024-03-28 06:18] LABS: POTASSIUM 4.1 mEq/L (3.5-5.1)
[2024-03-28 06:19] LABS: CALCIUM 9.5 mg/dL (8.7-10.4)
[2024-03-28 07:30] LABS: HEMATOCRIT. 27.4 % (42.0-52.0); HEMOGLOBIN. 8.1 g/dL (14.0-18.0); MEAN CORPUSCULAR HEMOGLOBIN 27.6 pg (28.0-32.0); MEAN CORPUSCULAR HGB CONC 29.7 g/dL (31.0-37.0); MEAN CORPUSCULAR VOLUME 93.2 fL (80.0-94.0); MEAN PLATELET VOLUME 10.1 fl (7.4-10.4); PLATELET 228 x1000/uL (130-400); RED BLOOD CELL COUNT 2.95 mill/uL (4.7-6.1); RED CELL DISTRIBUTION WIDTH 21.1 % (11.6-14.6); WHITE BLOOD COUNT 20.2 x1000/uL (4.5-11.0)
[2024-03-28 10:26] LABS: DIFFERENTIAL COMMENT 1
[2024-03-28] MEDS ORDERED: FENTANYL 2500MCG/250ML PMX 250 ML IV PRN (18:00)
[2024-03-28] MEDS: PROPOFOL 10MG/ML 100ML 100 ML IV PRN (18:24)
[2024-03-28 18:51] LABS: BG BASE EXCESS -1.6 mmol/L (-2.0-3.0); BG DEOXYHEMOGLOBIN 0.3 % (0.0-5.0); BG FRACTION INSPIRED OXYGEN 100; BG HCO3 ACT 24.9 mmol/L (21.0-28.0); BG METHEMOGLOBIN 0.3 % (0.5-1.5); BG OXYGEN SATURATION 99.7 % (94.0-98.0); BG OXYHEMOGLOBIN 98.4 % (94.0-98.0); BG PCO2 51.3 mmHg (35.0-48.0); BG PH 7.304 (7.350-7.450); BG PO2 223.5 mmHg (83.0-108.0); BG SAMPLE SITE RIGHT BRACHIAL; BG TOTAL HEMOGLOBIN 8.8 g/dL (13.5-17.5); BG VENT MODE VENT - AC
[2024-03-28 22:51] LABS: ANISOCYTOSIS 2+; PLATELET ESTIMATE NORMAL
[2024-03-29] VITALS (118 sets, daily range): BP systolic 43–193; BP diastolic 22–114; PULSE 57–100; RESP 9–42; TEMP 36.114–36.89184; O2SAT 94–100
[2024-03-29 03:20] LABS: BG BASE EXCESS 0.8 mmol/L (-2.0-3.0); BG CARBOXYHEMOGLOBIN 0.7 % (0.5-1.5); BG DEOXYHEMOGLOBIN 0.3 % (0.0-5.0); BG FRACTION INSPIRED OXYGEN 100; BG HCO3 ACT 26.3 mmol/L (21.0-28.0); BG METHEMOGLOBIN 0.1 % (0.5-1.5); BG OXYGEN SATURATION 99.7 % (94.0-98.0); BG OXYHEMOGLOBIN 98.9 % (94.0-98.0); BG PCO2 46.5 mmHg (35.0-48.0); BG PO2 228.5 mmHg (83.0-108.0); BG SAMPLE SITE RIGHT BRACHIAL; BG TOTAL HEMOGLOBIN 8.6 g/dL (13.5-17.5); BG VENT MODE VENT - AC
[2024-03-29 07:06] LABS: HEMATOCRIT. 25.4 % (42.0-52.0); HEMOGLOBIN. 7.7 g/dL (14.0-18.0); MEAN CORPUSCULAR HEMOGLOBIN 27.6 pg (28.0-32.0); MEAN CORPUSCULAR HGB CONC 30.3 g/dL (31.0-37.0); MEAN CORPUSCULAR VOLUME 90.9 fL (80.0-94.0); MEAN PLATELET VOLUME 10.7 fl (7.4-10.4); PLATELET 267 x1000/uL (130-400); RED CELL DISTRIBUTION WIDTH 21.1 % (11.6-14.6); WHITE BLOOD COUNT 29.6 x1000/uL (4.5-11.0)
[2024-03-29 07:10] LABS: DIFFERENTIAL COMMENT 1
[2024-03-29 10:11] LABS: BG BASE EXCESS -2.8 mmol/L (-2.0-3.0); BG CARBOXYHEMOGLOBIN 1.2 % (0.5-1.5); BG FRACTION INSPIRED OXYGEN 60; BG HCO3 ACT 22.4 mmol/L (21.0-28.0); BG METHEMOGLOBIN 0.3 % (0.5-1.5); BG OXYHEMOGLOBIN 95.5 % (94.0-98.0); BG PCO2 40.1 mmHg (35.0-48.0); BG PH 7.364 (7.350-7.450); BG PO2 93.1 mmHg (83.0-108.0); BG SAMPLE SITE RIGHT BRACHIAL; BG TOTAL HEMOGLOBIN 8.8 g/dL (13.5-17.5); BG VENT MODE VENT - AC
[2024-03-29 15:13] LABS: ANISOCYTOSIS 3+; PLATELET ESTIMATE NORMAL
[2024-03-29 19:01] LABS: CHLORIDE 101 mEq/L (98-107); POTASSIUM 4.4 mEq/L (3.5-5.1); SODIUM 137 mEq/L (136-145)
[2024-03-29 19:02] LABS: CARBON DIOXIDE 23 mEq/L (21-32)
[2024-03-29 19:07] LABS: GLUCOSE 114 mg/dL (70-105); TRIGLYCERIDE 110 mg/dL (0-150); UREA NITROGEN BLOOD 34 mg/dL (9-23)
[2024-03-29 19:09] LABS: ALANINE AMINOTRANSFERASE 51 IU/L (10-49); ALBUMIN 3.1 g/dL (3.2-4.8); ASPARTATE AMINOTRANSFERASE 24 IU/L (<34)
[2024-03-29 19:10] LABS: BILIRUBIN TOTAL 0.9 mg/dL (0.1-1.0); PROTEIN TOTAL 7.3 g/dL (6.0-8.3)
[2024-03-29] MEDS: PIPERACILLIN/TAZO 3.375G/100ML 100 ML IV SCH (23:06)
[2024-03-29] MEDS ORDERED: PROPOFOL 10MG/ML 100ML 100 ML IV PRN (23:15)
[2024-03-30] VITALS (99 sets, daily range): BP systolic 87–170; BP diastolic 22–80; PULSE 55–94; RESP 0–28; TEMP 36.61404–37.16964; O2SAT 96–100
[2024-03-30 14:13] LABS: HEMATOCRIT. 27.4 % (42.0-52.0); HEMOGLOBIN. 8.2 g/dL (14.0-18.0); MEAN CORPUSCULAR HEMOGLOBIN 26.6 pg (28.0-32.0); MEAN CORPUSCULAR HGB CONC 30.1 g/dL (31.0-37.0); MEAN CORPUSCULAR VOLUME 88.4 fL (80.0-94.0); MEAN PLATELET VOLUME 9.2 fl (7.4-10.4); PLATELET 331 x1000/uL (130-400); RED BLOOD CELL COUNT 3.09 mill/uL (4.7-6.1); RED CELL DISTRIBUTION WIDTH 20.5 % (11.6-14.6); WHITE BLOOD COUNT 27.3 x1000/uL (4.5-11.0)
[2024-03-30 14:17] LABS: DIFFERENTIAL COMMENT 1
[2024-03-30 14:20] LABS: POTASSIUM 3.3 mEq/L (3.5-5.1)
[2024-03-30 14:22] LABS: CALCIUM 10.1 mg/dL (8.7-10.4)
[2024-03-30 14:33] LABS: CREATININE 2.4 mg/dL (0.6-1.3)
[2024-03-30 18:35] LABS: ANISOCYTOSIS 2+; PLATELET ESTIMATE NORMAL
[2024-03-30] MEDS: MIDODRINE HCL 5MG TABLET PO PRN (21:12)
[2024-03-31] VITALS (100 sets, daily range): BP systolic 78–166; BP diastolic 32–95; PULSE 57–98; RESP 11–29; TEMP 36.78072–37.7808; O2SAT 97–100
[2024-03-31] MEDS: BLOOD SUGAR DIAGNOSTIC STRIP TEST SCH
[2024-03-31] MEDS: INSULIN LISPRO 100 UNITS/ML SUBCUT SCH (00:04)
[2024-03-31] MEDS: PROPOFOL 10MG/ML 100ML 100 ML IV PRN (02:06)
[2024-03-31 07:23] LABS: CARBON DIOXIDE 23 mEq/L (21-32); CHLORIDE 100 mEq/L (98-107); POTASSIUM 3.8 mEq/L (3.5-5.1); SODIUM 137 mEq/L (136-145)
[2024-03-31 07:24] LABS: CALCIUM 10.2 mg/dL (8.7-10.4)
[2024-03-31 07:25] LABS: HEMATOCRIT 25.3 % (42.0-52.0); HEMOGLOBIN 7.6 g/dL (14.0-18.0); MEAN CORPUSCULAR HEMOGLOBIN 26.6 pg (28.0-32.0); MEAN CORPUSCULAR HGB CONC 30.1 g/dL (31.0-37.0); MEAN CORPUSCULAR VOLUME 88.2 fL (80.0-94.0); PLATELET 314 x1000/uL (130-400); RED BLOOD CELL COUNT 2.86 mill/uL (4.7-6.1); RED CELL DISTRIBUTION WIDTH 20.6 % (11.6-14.6); WHITE BLOOD COUNT 25.7 x1000/uL (4.5-11.0)
[2024-03-31 07:28] LABS: GLUCOSE 165 mg/dL (70-105)
[2024-03-31 07:29] LABS: TRIGLYCERIDE 129 mg/dL (0-150); UREA NITROGEN BLOOD 38 mg/dL (9-23)
[2024-03-31 07:34] LABS: CREATININE 3.6 mg/dL (0.6-1.3)
[2024-03-31] MEDS: ENOXAPARIN 30MG/0.3ML SYR SUBCUT SCH (18:37)
[2024-03-31] MEDS: DAPTOMYCIN 500 MG in SODIUM CHLORIDE 0.9% 50 ML IV SCH (21:20)
[2024-03-31 21:57] LABS: CREATINE KINASE 17 IU/L (46-171)
[2024-04-01] VITALS (106 sets, daily range): BP systolic 78–176; BP diastolic 26–82; PULSE 62–99; RESP 0–32; TEMP 37.00296–37.7808; O2SAT 99–100
[2024-04-01] MEDS: PROPOFOL 10MG/ML 100ML 100 ML IV PRN (06:12)
[2024-04-01 07:12] LABS: CALCIUM 9.7 mg/dL (8.7-10.4); CARBON DIOXIDE 21 mEq/L (21-32); CHLORIDE 100 mEq/L (98-107); POTASSIUM 4.1 mEq/L (3.5-5.1); SODIUM 135 mEq/L (136-145)
[2024-04-01 07:16] LABS: CREATININE 4.2 mg/dL (0.6-1.3)
[2024-04-01 07:17] LABS: INR 1.1; PROTHROMBIN TIME 12.3 sec (9.6-11.0)
[2024-04-01 07:18] LABS: GLUCOSE 189 mg/dL (70-105); TRIGLYCERIDE 151 mg/dL (0-150); UREA NITROGEN BLOOD 48 mg/dL (9-23)
[2024-04-01 07:20] LABS: PHOSPHORUS 4.4 mg/dL (2.5-4.9)
[2024-04-01 07:38] LABS: HEMATOCRIT 25.1 % (42.0-52.0); HEMOGLOBIN 7.6 g/dL (14.0-18.0); MEAN CORPUSCULAR HEMOGLOBIN 26.3 pg (28.0-32.0); MEAN CORPUSCULAR HGB CONC 30.2 g/dL (31.0-37.0); MEAN CORPUSCULAR VOLUME 87.3 fL (80.0-94.0); PLATELET 320 x1000/uL (130-400); RED BLOOD CELL COUNT 2.87 mill/uL (4.7-6.1); RED CELL DISTRIBUTION WIDTH 19.7 % (11.6-14.6); WHITE BLOOD COUNT 23.6 x1000/uL (4.5-11.0)
[2024-04-01 14:03] LABS: BG BASE EXCESS -4.6 mmol/L (-2.0-3.0); BG CARBOXYHEMOGLOBIN 1.3 % (0.5-1.5); BG DEOXYHEMOGLOBIN 2.9 % (0.0-5.0); BG FRACTION INSPIRED OXYGEN 40; BG HCO3 ACT 21.2 mmol/L (21.0-28.0); BG METHEMOGLOBIN 0.3 % (0.5-1.5); BG OXYGEN SATURATION 97.1 % (94.0-98.0); BG OXYHEMOGLOBIN 95.5 % (94.0-98.0); BG PO2 95.9 mmHg (83.0-108.0); BG SAMPLE SITE RIGHT RADIAL; BG TOTAL HEMOGLOBIN 7.9 g/dL (13.5-17.5); BG VENT MODE VENT - AC/PC
[2024-04-01] MEDS: METOCLOPRAMIDE HCL 10MG/2ML VIAL IV SCH (18:38)
[2024-04-01 19:01] LABS: HEMATOCRIT 28.2 % (42.0-52.0); HEMOGLOBIN 8.2 g/dL (14.0-18.0)
[2024-04-01] MEDS ORDERED: PROPOFOL 10MG/ML 100ML 100 ML IV PRN (21:12)
[2024-04-01] MEDS: FENTANYL CITRATE/PF 2,500 MCG in SODIUM CHLORIDE 0.9% 200 ML IV PRN (23:31)
[2024-04-02] VITALS (98 sets, daily range): BP systolic 87–161; BP diastolic 27–77; PULSE 61–96; RESP 12–29; TEMP 36.28068–37.39188; O2SAT 94–100
[2024-04-02 06:34] LABS: HEMATOCRIT 24.5 % (42.0-52.0); HEMOGLOBIN 7.4 g/dL (14.0-18.0); MEAN CORPUSCULAR HEMOGLOBIN 26.6 pg (28.0-32.0); MEAN CORPUSCULAR HGB CONC 30.4 g/dL (31.0-37.0); MEAN CORPUSCULAR VOLUME 87.7 fL (80.0-94.0); PLATELET 310 x1000/uL (130-400); RED BLOOD CELL COUNT 2.79 mill/uL (4.7-6.1); RED CELL DISTRIBUTION WIDTH 20.2 % (11.6-14.6); WHITE BLOOD COUNT 19.4 x1000/uL (4.5-11.0)
[2024-04-02 07:35] LABS: CREATININE 4.5 mg/dL (0.6-1.3)
[2024-04-02] MEDS ORDERED: ROCURONIUM BROMIDE 10MG/ML VIAL 5ML IV ONE (16:27)
[2024-04-03] VITALS (104 sets, daily range): BP systolic 99–165; BP diastolic 37–82; PULSE 57–95; RESP 13–30; TEMP 36.3918–37.61412; O2SAT 99–100
[2024-04-03 06:22] LABS: CARBON DIOXIDE 17 mEq/L (21-32); CHLORIDE 102 mEq/L (98-107); POTASSIUM 4.7 mEq/L (3.5-5.1); SODIUM 138 mEq/L (136-145)
[2024-04-03 06:24] LABS: CALCIUM 10.3 mg/dL (8.7-10.4)
[2024-04-03 06:28] LABS: GLUCOSE 160 mg/dL (70-105)
[2024-04-03 06:29] LABS: UREA NITROGEN BLOOD 62 mg/dL (9-23)
[2024-04-03 06:31] LABS: PHOSPHORUS 6.7 mg/dL (2.5-4.9)
[2024-04-03 06:49] LABS: CREATININE 5.2 mg/dL (0.6-1.3)
[2024-04-03] MEDS: MEROPENEM 1GM/50ML DUPLEX 50 ML IV SCH (08:04)
[2024-04-03 08:22] LABS: HEMATOCRIT 23.9 % (42.0-52.0); HEMOGLOBIN 7.4 g/dL (14.0-18.0); MEAN CORPUSCULAR HEMOGLOBIN 27.2 pg (28.0-32.0); MEAN CORPUSCULAR HGB CONC 31.1 g/dL (31.0-37.0); MEAN CORPUSCULAR VOLUME 87.6 fL (80.0-94.0); PLATELET 336 x1000/uL (130-400); RED BLOOD CELL COUNT 2.73 mill/uL (4.7-6.1); RED CELL DISTRIBUTION WIDTH 20.2 % (11.6-14.6); WHITE BLOOD COUNT 16.7 x1000/uL (4.5-11.0)
[2024-04-03] MEDS: LANTHANUM CARBONATE 500MG CHEW TABLET PO SCH (12:59)
[2024-04-03 13:34] LABS: BG BASE EXCESS -4.3 mmol/L (-2.0-3.0); BG CARBOXYHEMOGLOBIN 2.1 % (0.5-1.5); BG FRACTION INSPIRED OXYGEN 40; BG HCO3 ACT 21.5 mmol/L (21.0-28.0); BG OXYHEMOGLOBIN 95.9 % (94.0-98.0); BG PCO2 42.8 mmHg (35.0-48.0); BG PH 7.319 (7.350-7.450); BG PO2 106.9 mmHg (83.0-108.0); BG SAMPLE SITE RIGHT BRACHIAL; BG TOTAL HEMOGLOBIN 7.1 g/dL (13.5-17.5); BG VENT MODE VENT - AC/PC
[2024-04-04] VITALS (76 sets, daily range): BP systolic 90–150; BP diastolic 42–77; PULSE 39–82; RESP 14–29; TEMP 35.89176–36.89184; O2SAT 99–100
[2024-04-04 00:03] LABS: HEMATOCRIT 21.4 % (42.0-52.0)
[2024-04-04 00:11] LABS: HEMOGLOBIN 6.5 g/dL (14.0-18.0)
[2024-04-04 09:16] LABS: BG BASE EXCESS -4.6 mmol/L (-2.0-3.0); BG CARBOXYHEMOGLOBIN 0.7 % (0.5-1.5); BG DEOXYHEMOGLOBIN 1.7 % (0.0-5.0); BG FRACTION INSPIRED OXYGEN 40; BG HCO3 ACT 21.5 mmol/L (21.0-28.0); BG METHEMOGLOBIN 0.2 % (0.5-1.5); BG OXYGEN SATURATION 98.3 % (94.0-98.0); BG OXYHEMOGLOBIN 97.4 % (94.0-98.0); BG PCO2 44.3 mmHg (35.0-48.0); BG PH 7.304 (7.350-7.450); BG PO2 127.3 mmHg (83.0-108.0); BG SAMPLE SITE RIGHT BRACHIAL; BG TOTAL HEMOGLOBIN 8.5 g/dL (13.5-17.5); BG TOTAL RESPIRATORY RATE 25 b/min; BG VENT MODE VENT - P/C
[2024-04-04 18:33] LABS: HEMATOCRIT 26.1 % (42.0-52.0); MEAN CORPUSCULAR HEMOGLOBIN 27.4 pg (28.0-32.0); MEAN CORPUSCULAR HGB CONC 31.3 g/dL (31.0-37.0); MEAN CORPUSCULAR VOLUME 87.4 fL (80.0-94.0); PLATELET 268 x1000/uL (130-400); RED BLOOD CELL COUNT 2.98 mill/uL (4.7-6.1); RED CELL DISTRIBUTION WIDTH 19.4 % (11.6-14.6); WHITE BLOOD COUNT 9.8 x1000/uL (4.5-11.0)
[2024-04-04 18:41] LABS: POTASSIUM 3.5 mEq/L (3.5-5.1)
[2024-04-04 18:42] LABS: CALCIUM 9.9 mg/dL (8.7-10.4); HEMOGLOBIN 8.2 g/dL (14.0-18.0)
[2024-04-04 18:47] LABS: CREATININE 4.6 mg/dL (0.6-1.3)
[2024-04-04] MEDS: DEXT 5%/0.45% NACL 1000ML 1,000 ML IV SCH (23:47)
[2024-04-05] VITALS (25 sets, daily range): BP systolic 101–139; BP diastolic 50–74; PULSE 61–91; RESP 8–24; TEMP 35.89176–36.50292; O2SAT 99–100
[2024-04-05 07:07] LABS: PROTHROMBIN TIME 11.6 sec (9.6-11.0)
[2024-04-05 07:26] LABS: POTASSIUM 3.5 mEq/L (3.5-5.1)
[2024-04-05 07:32] LABS: CREATININE 4.7 mg/dL (0.6-1.3)
[2024-04-05 07:35] LABS: HEMATOCRIT. 25.1 % (42.0-52.0); MEAN CORPUSCULAR HEMOGLOBIN 27.7 pg (28.0-32.0); MEAN CORPUSCULAR HGB CONC 32.1 g/dL (31.0-37.0); MEAN CORPUSCULAR VOLUME 86.3 fL (80.0-94.0); MEAN PLATELET VOLUME 9.1 fl (7.4-10.4); PLATELET 264 x1000/uL (130-400); RED BLOOD CELL COUNT 2.91 mill/uL (4.7-6.1); RED CELL DISTRIBUTION WIDTH 19.5 % (11.6-14.6); WHITE BLOOD COUNT 9.7 x1000/uL (4.5-11.0)
[2024-04-05 07:53] LABS: DIFFERENTIAL COMMENT 1
[2024-04-05] MEDS ORDERED: CEFAZOLIN 1000MG PREMIX 50 ML IV NR (11:00)
[2024-04-05 18:32] LABS: PLATELET ESTIMATE NORMAL
[2024-04-05 18:33] LABS: ANISOCYTOSIS 2+; HYPOCHROMASIA 1+
[2024-04-06] VITALS (23 sets, daily range): BP systolic 92–135; BP diastolic 43–71; PULSE 60–93; RESP 16–25; TEMP 36.33624–37.00296; O2SAT 97–100
[2024-04-06 07:45] LABS: POTASSIUM 3.1 mEq/L (3.5-5.1)
[2024-04-06 07:46] LABS: CALCIUM 9.2 mg/dL (8.7-10.4)
[2024-04-06 07:51] LABS: CREATININE 3.6 mg/dL (0.6-1.3)
[2024-04-06 07:52] LABS: HEMATOCRIT. 24.2 % (42.0-52.0); HEMOGLOBIN. 7.6 g/dL (14.0-18.0); MEAN CORPUSCULAR HEMOGLOBIN 27.5 pg (28.0-32.0); MEAN CORPUSCULAR HGB CONC 31.5 g/dL (31.0-37.0); MEAN CORPUSCULAR VOLUME 87.3 fL (80.0-94.0); PLATELET 228 x1000/uL (130-400); RED BLOOD CELL COUNT 2.77 mill/uL (4.7-6.1); RED CELL DISTRIBUTION WIDTH 19.5 % (11.6-14.6); WHITE BLOOD COUNT 11.4 x1000/uL (4.5-11.0)
[2024-04-06 08:37] LABS: DIFFERENTIAL COMMENT 1
[2024-04-06 10:28] LABS: BG BASE EXCESS -2.1 mmol/L (-2.0-3.0); BG CARBOXYHEMOGLOBIN 0.8 % (0.5-1.5); BG DEOXYHEMOGLOBIN 3.2 % (0.0-5.0); BG FRACTION INSPIRED OXYGEN 40; BG HCO3 ACT 22.8 mmol/L (21.0-28.0); BG METHEMOGLOBIN 0.3 % (0.5-1.5); BG OXYGEN SATURATION 96.8 % (94.0-98.0); BG OXYHEMOGLOBIN 95.7 % (94.0-98.0); BG PCO2 39.1 mmHg (35.0-48.0); BG PH 7.383 (7.350-7.450); BG PO2 91.7 mmHg (83.0-108.0); BG SAMPLE SITE RIGHT RADIAL; BG TOTAL HEMOGLOBIN 8.3 g/dL (13.5-17.5); BG VENT MODE VENT - P/C
[2024-04-06] MEDS: KCL 20MEQ/100ML PREMIX 100 ML IV SCH (11:40)
[2024-04-06 15:12] LABS: PLATELET ESTIMATE NORMAL
[2024-04-06 15:13] LABS: HYPOCHROMASIA 1+; MICROCYTOSIS 2+
[2024-04-06] MEDS: MEROPENEM 500MG/50ML 50 ML IV SCH (15:15)
[2024-04-06] MEDS: IPRATROPIUM/ALBUTEROL 0.5-3(2.5)MG/3ML NEB HHN SCH (18:00)
[2024-04-06 18:29] LABS: POTASSIUM 3.9 mEq/L (3.5-5.1)
[2024-04-06] MEDS: GUAIFENESIN 200MG/10ML SUGAR FREE UDC PO SCH (18:43)
[2024-04-07] VITALS (24 sets, daily range): BP systolic 101–118; BP diastolic 52–64; PULSE 66–87; RESP 16–28; TEMP 36.22512–37.503; O2SAT 94–100
[2024-04-07 06:00] LABS: CALCIUM 9.4 mg/dL (8.7-10.4); CHLORIDE 101 mEq/L (98-107); POTASSIUM 3.8 mEq/L (3.5-5.1); SODIUM 135 mEq/L (136-145)
[2024-04-07 06:01] LABS: CARBON DIOXIDE 21 mEq/L (21-32)
[2024-04-07 06:06] LABS: GLUCOSE 215 mg/dL (70-105); UREA NITROGEN BLOOD 50 mg/dL (9-23)
[2024-04-07 06:14] LABS: CREATINE KINASE < 15 IU/L (46-171)
[2024-04-07 07:32] LABS: HEMATOCRIT. 24.7 % (42.0-52.0); HEMOGLOBIN. 7.8 g/dL (14.0-18.0); MEAN CORPUSCULAR HEMOGLOBIN 27.5 pg (28.0-32.0); MEAN CORPUSCULAR HGB CONC 31.6 g/dL (31.0-37.0); MEAN CORPUSCULAR VOLUME 87.2 fL (80.0-94.0); MEAN PLATELET VOLUME 9.7 fl (7.4-10.4); PLATELET 254 x1000/uL (130-400); RED BLOOD CELL COUNT 2.83 mill/uL (4.7-6.1); RED CELL DISTRIBUTION WIDTH 18.8 % (11.6-14.6); WHITE BLOOD COUNT 13.7 x1000/uL (4.5-11.0)
[2024-04-07 08:16] LABS: DIFFERENTIAL COMMENT 1
[2024-04-07 18:15] LABS: ANISOCYTOSIS 1+; PLATELET ESTIMATE NORMAL
[2024-04-07] MEDS: DEXT 5%/0.45% NACL 1000ML 1,000 ML IV SCH (21:00)
[2024-04-08] VITALS (17 sets, daily range): BP systolic 99–124; BP diastolic 51–63; PULSE 68–88; RESP 8–30; TEMP 36.28068–37.39188; O2SAT 96–100
[2024-04-08 05:55] LABS: INR 1.1; PROTHROMBIN TIME 12.6 sec (9.6-11.0)
[2024-04-08 06:03] LABS: BASOPHILS % 0.4 % (0.0-2.0); DIFFERENTIAL COMMENT 0; EOSINOPHILS % 0.3 % (0.0-5.0); HEMATOCRIT. 24.8 % (42.0-52.0); HEMOGLOBIN. 7.9 g/dL (14.0-18.0); LYMPHOCYTES % 8.5 % (20.0-50.0); MEAN CORPUSCULAR HEMOGLOBIN 27.4 pg (28.0-32.0); MEAN CORPUSCULAR HGB CONC 31.7 g/dL (31.0-37.0); MEAN CORPUSCULAR VOLUME 86.5 fL (80.0-94.0); MEAN PLATELET VOLUME 9.6 fl (7.4-10.4); MONOCYTES % 9.3 % (2.0-8.0); NEUTROPHILS % 81.5 % (40.0-76.0); PLATELET 300 x1000/uL (130-400); RED BLOOD CELL COUNT 2.86 mill/uL (4.7-6.1); RED CELL DISTRIBUTION WIDTH 19.8 % (11.6-14.6); WHITE BLOOD COUNT 13.8 x1000/uL (4.5-11.0)
[2024-04-08 06:21] LABS: CHLORIDE 98 mEq/L (98-107); POTASSIUM 3.8 mEq/L (3.5-5.1); SODIUM 132 mEq/L (136-145)
[2024-04-08 06:22] LABS: CALCIUM 9.5 mg/dL (8.7-10.4); CARBON DIOXIDE 23 mEq/L (21-32)
[2024-04-08 06:27] LABS: ALANINE AMINOTRANSFERASE 20 IU/L (10-49); CREATININE 4.5 mg/dL (0.6-1.3); GLUCOSE 208 mg/dL (70-105); UREA NITROGEN BLOOD 58 mg/dL (9-23)
[2024-04-08 06:29] LABS: ALBUMIN 2.6 g/dL (3.2-4.8); ASPARTATE AMINOTRANSFERASE 21 IU/L (<34)
[2024-04-08 06:30] LABS: BILIRUBIN TOTAL 0.4 mg/dL (0.1-1.0); PROTEIN TOTAL 6.3 g/dL (6.0-8.3)
[2024-04-09] VITALS (30 sets, daily range): BP systolic 100–134; BP diastolic 31–80; PULSE 70–85; RESP 20–26; TEMP 36.44736–37.11408; O2SAT 98–100
[2024-04-09 08:07] LABS: CARBON DIOXIDE 22 mEq/L (21-32); CHLORIDE 98 mEq/L (98-107); POTASSIUM 4.2 mEq/L (3.5-5.1); SODIUM 131 mEq/L (136-145)
[2024-04-09 08:08] LABS: CALCIUM 9.4 mg/dL (8.7-10.4)
[2024-04-09 08:13] LABS: CREATININE 4.9 mg/dL (0.6-1.3); GLUCOSE 194 mg/dL (70-105)
[2024-04-09 08:14] LABS: UREA NITROGEN BLOOD 64 mg/dL (9-23)
[2024-04-09 08:16] LABS: PHOSPHORUS 4.1 mg/dL (2.5-4.9)
[2024-04-09 09:03] LABS: BASOPHILS % 0.4 % (0.0-2.0); EOSINOPHILS % 0.7 % (0.0-5.0); HEMOGLOBIN. 7.1 g/dL (14.0-18.0); LYMPHOCYTES % 8.4 % (20.0-50.0); MEAN CORPUSCULAR HEMOGLOBIN 27.3 pg (28.0-32.0); MEAN CORPUSCULAR HGB CONC 31.2 g/dL (31.0-37.0); MEAN CORPUSCULAR VOLUME 87.5 fL (80.0-94.0); MEAN PLATELET VOLUME 9.7 fl (7.4-10.4); MONOCYTES % 8.4 % (2.0-8.0); NEUTROPHILS % 82.1 % (40.0-76.0); PLATELET 275 x1000/uL (130-400); RED BLOOD CELL COUNT 2.62 mill/uL (4.7-6.1); RED CELL DISTRIBUTION WIDTH 19.4 % (11.6-14.6); WHITE BLOOD COUNT 11.1 x1000/uL (4.5-11.0)
[2024-04-10] VITALS (17 sets, daily range): BP systolic 103–134; BP diastolic 37–63; PULSE 71–94; RESP 18–32; TEMP 36.6696–36.83628; O2SAT 98–100
[2024-04-10 07:08] LABS: CREATININE 3.7 mg/dL (0.6-1.3)
[2024-04-10 07:18] LABS: HEMATOCRIT. 22.8 % (42.0-52.0); HEMOGLOBIN. 7.1 g/dL (14.0-18.0); MEAN CORPUSCULAR HEMOGLOBIN 27.3 pg (28.0-32.0); MEAN CORPUSCULAR HGB CONC 31.3 g/dL (31.0-37.0); MEAN CORPUSCULAR VOLUME 87.3 fL (80.0-94.0); MEAN PLATELET VOLUME 8.8 fl (7.4-10.4); PLATELET 268 x1000/uL (130-400); RED BLOOD CELL COUNT 2.61 mill/uL (4.7-6.1); RED CELL DISTRIBUTION WIDTH 19.4 % (11.6-14.6); WHITE BLOOD COUNT 14.2 x1000/uL (4.5-11.0)
[2024-04-10 07:25] LABS: DIFFERENTIAL COMMENT 1
[2024-04-10 16:19] LABS: PLATELET ESTIMATE NORMAL
== END 2024-04-10 21:45 | DRG 4 ==
LOC: ER 21:47 → MICUSO 23:42 → CVICU 03-20 09:16 → 5EST 03-27 22:50 → CVICU 04-03 15:13 → 5EST 04-04 14:15
PROVIDERS: ADMIT Internal Medicine; ATTEND Internal Medicine
PROC: 5A1955Z Respiratory Ventilation, Greater than 96 Consecutive Hours (ICD-10-PCS; principal; 2024-03-20)
PROC: 5A1D70Z Performance of Urinary Filtration, Intermittent, Less than 6 Hours Per Day (ICD-10-PCS; 2024-03-20)
PROC: 5A1D70Z Performance of Urinary Filtration, Intermittent, Less than 6 Hours Per Day (ICD-10-PCS; 2024-03-22)
PROC: 02HV33Z Insertion of Infusion Device into Superior Vena Cava, Percutaneous Approach (ICD-10-PCS; 2024-03-24)
PROC: B548ZZA Ultrasonography of Superior Vena Cava, Guidance (ICD-10-PCS; 2024-03-24)
PROC: 5A1D70Z Performance of Urinary Filtration, Intermittent, Less than 6 Hours Per Day (ICD-10-PCS; 2024-03-24)
PROC: 4A10X4Z Monitoring of Central Nervous Electrical Activity, External Approach (ICD-10-PCS; 2024-03-26)
PROC: 5A1D70Z Performance of Urinary Filtration, Intermittent, Less than 6 Hours Per Day (ICD-10-PCS; 2024-03-26)
PROC: 5A1955Z Respiratory Ventilation, Greater than 96 Consecutive Hours (ICD-10-PCS; 2024-03-28)
PROC: 0BH17EZ Insertion of Endotracheal Airway into Trachea, Via Natural or Artificial Opening (ICD-10-PCS; 2024-03-28)
PROC: 5A09357 Assistance with Respiratory Ventilation, Less than 24 Consecutive Hours, Continuous Positive Airway Pressure (ICD-10-PCS; 2024-03-28)
PROC: 5A1D70Z Performance of Urinary Filtration, Intermittent, Less than 6 Hours Per Day (ICD-10-PCS; 2024-03-28)
PROC: 5A1D70Z Performance of Urinary Filtration, Intermittent, Less than 6 Hours Per Day (ICD-10-PCS; 2024-03-30)
PROC: 0B110F4 Bypass Trachea to Cutaneous with Tracheostomy Device, Open Approach (ICD-10-PCS; 2024-04-02)
PROC: 0B918ZZ Drainage of Trachea, Via Natural or Artificial Opening Endoscopic (ICD-10-PCS; 2024-04-02)
PROC: 5A1D70Z Performance of Urinary Filtration, Intermittent, Less than 6 Hours Per Day (ICD-10-PCS; 2024-04-03)
PROC: 30233N1 Transfusion of Nonautologous Red Blood Cells into Peripheral Vein, Percutaneous Approach (ICD-10-PCS; 2024-04-04)
PROC: 5A1D70Z Performance of Urinary Filtration, Intermittent, Less than 6 Hours Per Day (ICD-10-PCS; 2024-04-05)
PROC: 0BH17EZ Insertion of Endotracheal Airway into Trachea, Via Natural or Artificial Opening (ICD-10-PCS; 2024-04-07)
PROC: 0DB78ZX Excision of Stomach, Pylorus, Via Natural or Artificial Opening Endoscopic, Diagnostic (ICD-10-PCS; 2024-04-08)
PROC: 0DH68UZ Insertion of Feeding Device into Stomach, Via Natural or Artificial Opening Endoscopic (ICD-10-PCS; 2024-04-08)
PROC: 5A1D70Z Performance of Urinary Filtration, Intermittent, Less than 6 Hours Per Day (ICD-10-PCS; 2024-04-09)
DX: A41.9 Sepsis, unspecified organism (principal); L89.223 Pressure ulcer of left hip, stage 3; E43 Unspecified severe protein-calorie malnutrition; J96.01 Acute respiratory failure with hypoxia; N18.6 End stage renal disease; R65.21 Severe sepsis with septic shock; I46.9 Cardiac arrest, cause unspecified; I50.33 Acute on chronic diastolic (congestive) heart failure; R57.0 Cardiogenic shock; G92.8 Other toxic encephalopathy; J69.0 Pneumonitis due to inhalation of food and vomit; I63.9 Cerebral infarction, unspecified; J15.1 Pneumonia due to Pseudomonas; I21.4 Non-ST elevation (NSTEMI) myocardial infarction; R57.8 Other shock; I13.2 Hypertensive heart and chronic kidney disease with heart failure and with stage 5 chronic kidney disease, or end stage renal disease; J44.0 Chronic obstructive pulmonary disease with (acute) lower respiratory infection; E87.20 Acidosis, unspecified; Z99.11 Dependence on respirator [ventilator] status; E87.1 Hypo-osmolality and hyponatremia; E87.5 Hyperkalemia; D64.9 Anemia, unspecified; Z99.2 Dependence on renal dialysis; E11.22 Type 2 diabetes mellitus with diabetic chronic kidney disease; Z91.148 Patient's other noncompliance with medication regimen for other reason; Z74.01 Bed confinement status; E11.65 Type 2 diabetes mellitus with hyperglycemia; E11.51 Type 2 diabetes mellitus with diabetic peripheral angiopathy without gangrene; I25.10 Atherosclerotic heart disease of native coronary artery without angina pectoris; I50.84 End stage heart failure; I45.10 Unspecified right bundle-branch block; L89.159 Pressure ulcer of sacral region, unspecified stage; L89.610 Pressure ulcer of right heel, unstageable; L89.620 Pressure ulcer of left heel, unstageable; I48.0 Paroxysmal atrial fibrillation; I27.81 Cor pulmonale (chronic); I44.1 Atrioventricular block, second degree; E78.5 Hyperlipidemia, unspecified; I27.29 Other secondary pulmonary hypertension; F32.A Depression, unspecified; K29.70 Gastritis, unspecified, without bleeding; R13.12 Dysphagia, oropharyngeal phase; E86.0 Dehydration; G35 Multiple sclerosis; Z91.199 Patient's noncompliance with other medical treatment and regimen due to unspecified reason; Z91.158 Patient's noncompliance with renal dialysis for other reason; Z79.4 Long term (current) use of insulin; Z79.82 Long term (current) use of aspirin; Z79.899 Other long term (current) drug therapy
CPT/HCPCS: 80048; 80320; 82550; 82962; 83880; 83605; 85025; 85610; 85730; 87040; 84484; 87804 ×2; 71045; 94002; 93005; 99291; J2704; J3490; 31500; 36415; 36573; 36600; 71275; 73620; 76604; 80053; 80061; 80202; 82040; 82270; 82375; 82607; 82728; 82746; 82805; 83036; 83540; 83550; 83735; 84100; 84132; 84145; 84439; 84443; 84478; 85014; 85018; 85027; 86705; 86709; 86850; 86900; 86920; 87070; 87077; 87186; 87340; 88305; 88312; 88313; 90935; 93306; 93970; 94003; 94070; 94640; 94664; 95816; A4606; A6261; C1725; C1769; J0282; J0610; J0690; J0878; J0885; J1644; J1650; J1815; J1940; J2003; J2004; J2185; J2470; J2543; J2765; J3370; J3480; J7042; J7060; P9016; Q9957; Q9967; G0480